=== PATIENT | female | born 2005 | race Caucasian/White ===

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

== ENCOUNTER 2023-02-17 11:16 | Outpatient (REF) | payer OTHER, SELFPAY ==
[2023-02-17 14:06] LABS: Hematocrit 41.5 % (37.0-47.0); Hemoglobin 14.2 g/dl (12.0-16.0); Mean Corpuscular HGB Conc 34.2 g/dl (31.0-35.0); Mean Corpuscular Hemoglobin 30.7 pg (27.0-33.0); Mean Corpuscular Volume 89.8 fL (80.0-98.0); Mean Platelet Volume 8.7 fL (9.4-12.3); Platelet Count 331 X10*3/uL (160-400); Red Blood Count 4.62 X10*6/uL (4.20-5.50); Red Cell Distribution Width 12.2 % (11.0-16.0); White Blood Count 5.2 X10*3/uL (4.8-10.8)
[2023-02-17 14:34] LABS: Alanine Aminotransferase 11 U/L (0-31); Albumin Level 4.4 g/dL (3.5-5.0); Alkaline Phosphatase 84 U/L (39-117); Anion Gap 11 (12-20); Aspartate Amino Transferase 13 U/L (5-31); Bilirubin Total 1.3 mg/dL (0.0-1.0); Blood Urea Nitrogen 10 mg/dL (9-16); Calcium 9.3 mg/dL (8.4-10.2); Carbon Dioxide 26 mmol/L (22-29); Chloride 107 mmol/L (96-108); Cholesterol 160 mg/dL; Estimated Glomerular Filt Rate > 60; Glucose Fasting 91 mg/dL (60-99); HDL Cholesterol 46 mg/dL; LDL Cholesterol Calculated 105 mg/dl; Potassium 4.1 mmol/L (3.3-5.1); Sodium 140 mmol/L (135-145); Triglycerides 46 mg/dL
[2023-02-17 14:49] LABS: TSH reflex Free T4 0.89 uIU/mL (0.32-4.0)
== END 2023-02-17 11:17 | disposition home or self-care (01) ==
LOC: HO.WFDLDS 11:16
PROVIDERS: Visit Provider Hospitalist
DX: Z00.00 Encounter for general adult medical examination without abnormal findings (principal)
CPT/HCPCS: 36415; 80053; 80061; 84443; 85027

== ENCOUNTER 2023-07-29 10:57 | Outpatient (AMB) | payer OTHER, SELFPAY ==
--- NOTE | 2023-07-29 13:17 | AM.OFFWIN_ITS ---
Intake Vital Signs 07/29/23 13:18 Height 5 ft 3 in Weight 139 lb BMI 24.6 BP 100/60 Blood Pressure Location Lt brachial Position Sitting Pulse 61 Pulse Source Pulse Oximeter Temp 98.4 F Temp Source Temporal Artery Scan Pulse Oximetry (%) 99 Oxygen Delivery Method Room Air Intake Visit Reasons: EP, Abdominal Pain Patient Tobacco Use Status: Never used Tobacco Allergies No Known Allergies Allergy (Verified 07/29/23 13:18) Do you need a note to return to daycare/school/sports/work: No HPI HPI Comments History of Present Illness Details This is a 18-year-old female who presents to the office today for sick visit. Patient complaining of abdominal cramping, vaginal bleeding, and nausea/ vomiting times 1-2 weeks. Patient states she ran out of her control and missed several doses. She then restarted her control while she was on her period and she has been having persistent vaginal bleeding, abdominal cramping, nausea/vomiting since then. She also reports food aversions. She has been having normal bowel movements without constipation or diarrhea. She denies any fevers or chills. [facility] Medical History (Updated 03/11/23 @ 08:54 by Vignesh Benedict MD) Left nasal polyps Chronic GERD Migraine Ileitis Social History Housing: House Alcohol intake: never Patient Tobacco Use Status: Never used Tobacco e-Cigarette/Vaping Use: Never Used service: No Current occupational status: employed Current occupation: [employer] Current occupational exposures/hazards: No Cognitive needs: No Hearing needs: No Vision needs: No Review of Systems Const All systems reviewed & are unremarkable except as noted in HPI and below Reports no additional complaints Eyes Reports no additional complaints ENT Reports no additional complaints Card Reports no additional complaints Resp Reports no additional complaints GI Reports no additional complaints Reports no additional complaints Musc Reports no additional complaints Skin/Breast Reports system reviewed and no additional complaints, except as documented Neuro Reports no additional complaints Psych Reports no additional complaints Endo Reports no additional complaints Froilan/Lymph Reports no additional complaints Aller/Immun Reports no additional complaints Physical Exam Vital Signs: Last Vital Signs Temp 98.4 F 07/29/23 13:18 Pulse 61 07/29/23 13:18 BP 100/60 07/29/23 13:18 Pulse Ox 99 07/29/23 13:18 Oxygen Delivery Method Room Air 07/29/23 13:18 BMI result Body Mass Index 24.6 Const Other: Vital signs reviewed. Constitutional: Non-toxic appearing. No acute distress. Well-developed and well-nourished. HEENT: Normocephalic and atraumatic. Tympanic membranes without erythema, edema, or bulging bilaterally. External auditory canals without erythema or edema bilaterally. Moist mucous membranes. No pharyngeal erythema or exudates. Skin: Warm and dry. No rashes or lesions noted. Neck: Full and painless range of motion. No cervical lymphadenopathy. Cardio: Regular rate and rhythm. No murmurs, gallops, or rubs. No lower extremity edema. No JVD. Pulmonary: No respiratory distress. No accessory muscle usage. Clear to auscultation bilaterally without wheezing, crackles, or rhonchi. Gastrointestinal: Soft, nontender, and nondistended in all 4 quadrants. Normoactive bowel sounds in all 4 quadrants. Genitourinary: No CVA tenderness. Musculoskeletal: Normal range of motion in joints throughout the body. No deformity or other signs of injury. Neuro: Alert and oriented x4. Cranial nerves 2-12 grossly intact. No focal deficits appreciated. Psych: Normal mood and affect. Results AMB Urinalysis, Automated UA Leukoctes 125 Chemo/uL Last Edit by Megha Angel CCM on 07/29/23 13: 44 UA Nitrite Negative Last Edit by Megha Angel [facility] on 07/29/23 13:44 UA Urobilinogen 0.2 mg/dL Last Edit by Megha Angel [facility] on 07/29/23 13:44 UA Protein 0 mg/dL Last Edit by Megha Angel [facility] on 07/29/23 13:44 UA pH 6.0 Last Edit by Megha Angel CCM on 07/29/23 13:44 UA Blood 80 Yohan/uL Last Edit by Megha Angel [facility] on 07/29/23 13:44 UA Specific [place] 1.015 Last Edit by Megha Angel CCM on 07/29/23 13:44 UA Ketone Negative Last Edit by Megha Angel [facility] on 07/29/23 13:44 UA Bilirubin 0 mg/dL Last Edit by PANCHO Mancia on 07/29/23 13:44 UA Glucose 0 mg/dL Last Edit by PANCHO Mancia on 07/29/23 13:44 AMB Test Urine AMB Test Urine Negative Last Edit by PANCHO Mancia on 07/29/23 13:45 Assessment & Plan Assessment & Plan (1) UTI (urinary tract infection): Code(s): N39.0 - Urinary tract infection, site not specified (2) Vaginal bleeding: Code(s): N93.9 - Abnormal uterine and vaginal bleeding, unspecified Plan This is a 18-year-old female who presents to the office complaining of abdominal cramping, vaginal bleeding, and nausea/vomiting times 1-2 weeks. Patient's physical exam is benign. Her abdomen is soft, non-tender, and non-distended with normoactive bowel sounds in all 4 quadrants. Her vital signs are stable, her physical exam is benign, and she is overall nontoxic appearing. Differential diagnosis includes versus control side effects versus urinary tract infection; very low suspicion for bowel obstruction. Urine HCG was negative but her urine did have 2+ leukocyte esterase. Treat urinary tract infection with p.o. nitrofurantoin 100 mg twice daily x5 days. Patient sent home on p.o. ondansetron 4 mg every 6 hours as needed for nausea/vomiting. I encouraged patient to follow-up with her primary care physician if her symptoms do not improve within the next 1 week. Patient was advised to follow-up here go to the emergency room if she were to develop worsening vaginal bleeding, lightheadedness/ dizziness, or fever/ chills. Patient verbalized understanding and is agreeable with the plan. Orders: Orders AMB Urinalysis Automated Today Z13.9 - Encounter for screening, unspecified AMB HCG Urine Test Today Z32.02 - Encounter for test, result negative Medications: New nitrofurantoin macrocrystal must administer with a meal/food 100 mg PO BID 10 caps 0RF ondansetron 4 mg PO Q6H PRN 14 tabs 0RF nausea and vomiting Coding Level of Care Code Est Pt Level 3 (04531) Diagnoses UTI (urinary tract infection) N39.0 Vaginal bleeding N93.9
[2023-07-29 13:18] VITALS: BP 100/60; PULSE 61; TEMP 36.9; O2SAT 99; BMI 24.6
== END 2023-07-29 14:08 | disposition home or self-care (01) ==
PROVIDERS: PCP Hospitalist; Visit Provider Physician Assistant Medical
DX: N39.0 Urinary tract infection, site not specified (principal); N93.9 Abnormal uterine and vaginal bleeding, unspecified; Z32.02 Encounter for pregnancy test, result negative
CPT/HCPCS: 81003; 81025; 99213

== ENCOUNTER 2023-12-06 10:22 | Outpatient (AMB) | payer OTHER, SELFPAY ==
--- NOTE | 2023-12-06 10:32 | A.OFFPC_ITS ---
Vital Signs 12/06/23 10:35 Height 5 ft 3 in Weight 130 lb 4 oz BMI 23.1 BP 110/66 Blood Pressure Location Rt brachial Position Sitting Pulse 60 Pulse Source Pulse Oximeter Pulse Oximetry (%) 99 Oxygen Delivery Method Room Air Intake Visit Reasons: CARLA from [facility] Intake Note: Patient is here today for transfer of care from . Requesting for TB test for school. 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 per policy Accompanied by: Self / Same As Patient Allergies No Known Allergies Allergy (Verified 12/06/23 11:08) Medication List - Last Reconciled 12/06/23 by Tisha Ellis, INTERNATIONAL AFFAIRS VICE PRESIDENT-BC fluticasone propionate 50 mcg/actuation (Flonase Allergy Relief) 1 spray intranasal Q12H 30 days norgestimate-ethinyl estradiol 0.18/0.215/0.25 mg-35 mcg (28) 1 tab PO DAILY tretinoin 0.05% appl topical Tobacco use date assessed: 12/06/23 Dental Screening Dental Screen Date: 12/06/23 Did you have a dental visit in the last 12 months?: No Did you have a dental problem in the last 6 months where you did not have access to dental care?: No Was dental information given to patient?: Patient has dentist HPI HPI Comments History of Present Illness Details 18-year-old female with chronic GERD, mi graine, nasal polyp allergic rhinitis Here today for CPE 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 Needs TB spot. Needs refill on OCP Nonsmoker, denies hx of clotting/blood disorders, cancer, [place], family hx of early cardiac On OCP but ran out of refills about 3 months ago. Would like to restart. Denies chance of . LMP 11/26/23 Sexually active has never had a pap smear worried she has BV. Smells worse after sex, sweaty. Denies at home tx. Does not douche. Started a few weeks ago. Not a new sex partner. Denies chance for STD. Dentist - routine dental care Eyes - does not wear glasses. Has appt 01/2024 Specialists: Used to see GI in the past but nothing recently. Surgery - colonoscopy normal a few years ago No other surgery Family hx: Mom and Dad alive and well Siblings: 3 bro,1 sister alive and well Maternal and paternal grandparents alive and well [facility] Medical History Left nasal polyps Chronic GERD Migraine Ileitis Surgical History History of colonoscopy Social History Housing: House Alcohol intake: never Patient Tobacco Use Status: Never used Tobacco e-Cigarette/Vaping Use: Never Used Second Hand Smoke Exposure: No service: No Current occupational status: employed Current occupation: [employer] Current occupational exposures/hazards: No Cognitive needs: No Hearing needs: No Vision needs: No Questionnaire PHQ-9 Over the last 2 weeks, how often have you been bothered by any of the following problems? 1. Little interest or pleasure in doing things: not at all 2. Feeling down, depressed, or hopeless: not at all 3. Trouble falling or staying asleep, or sleeping too much: not at all 4. Feeling tired or having little energy: not at all 5. Poor appetite or overeating: not at all 6. Feeling bad about yourself - or that you are a failure or have let yourself or your family down: not at all 7. Trouble concentrating on things, such as reading the newspaper or watching television: not at all 8. Moving or speaking so slowly that other people could have noticed. Or the opposite - being so fidgety or restless that you have been moving around a lot more than usual: not at all 9. Thoughts that you would be better off or of hurting yourself in some way: not at all Total score: 0 Depression Screening Interpretation: Negative Depression Screening Done: Yes Source: Developed by Drs. Bubba Carey, Betty Cardenas, Az Butler and colleagues, with an educational gonzález from [employer]. Thrive Questionnaire Date Thrive assessed: 12/06/23 I am a: Patient What is your living situation today?: I have a steady place to live Within the past 12 months, did the food you bought not last and you didn't have the money to get more?: Never true Within the past 12 months, did you worry whether your food would run out before you got money to buy more?: Never true Do you have trouble paying for medicines?: No Do you have trouble getting transportation to medical appointments?: No Do you have trouble paying your heating and electricity bill?: No Do you have trouble taking care of your child, family member or friend?: No Do you have trouble with day-to-day activities such as bathing, preparing meals, shopping, managing finances, etc.?: No Are you currently unemployed and looking for a job?: No Are you interested in more education?: No Currently or been in a relationship where the following occur: no concerns reported THRIVE Score: 0 AUDIT C Alcohol Use Questionnaire (AUDIT-C) 1. How often do you have a drink containing alcohol?: Never Total Score: 0 FRED-7 AMB Questionnaire FRED-7 Date FRED - 7 assessed: 12/06/23 Feeling nervous, anxious, or on edge: 0 = Not at all Not being able to stop or control worryin = Not at all Worrying too much about different things: 0 = Not at all Trouble relaxin = Not at all Being so restless that it is hard to sit still: 0 = Not at all Becoming easily annoyed or irritable: 0 = Not at all Feeling afraid as if something awful might happen: 0 = Not at all Total FRED-7 score (0-4 normal; 5-9 mild; 10-14 moderate; 15-21 severe): 0 Source: Developed by Drs. Bubba Carey, Betty Cardenas, Az Butler and colleagues, with an educational gonzález from [employer]. Review of Systems Const Details: Constitutional: [Denies} fever. Skin: Denies rash. Eye: Denies eye pain. ENMT: Denies sore throat and nasal congestion. Respiratory: Denies shortness of breath and cough. Gastrointestinal: Denies nausea, vomiting or abdominal pain. Cardiovascular: Denies chest pain and syncope. Genitourinary: Denies dysuria. Musculoskeletal: Denies back pain and extremity pain. Neurologic: Denies headaches, confusion, and weakness. Psychiatric: Denies suicidal thoughts and substance abuse. Allergy/ Immunologic: Denies impaired immunity. Physical exam (Primary Care) Vital Signs: Last Vital Signs Pulse 60 12/06/23 10:35 BP 110/66 12/06/23 10:35 Pulse Ox 99 12/06/23 10:35 Oxygen Delivery Method Room Air 12/06/23 10:35 BMI result Body Mass Index 23.1 Tobacco/Smoking Status: Tobacco use Status Tobacco use date assessed 12/06/23 12/06/23 10:42 Patient Tobacco Use Status Never used Tobacco 12/06/23 10:42 e-Cigarette/Vaping Use Never Used 12/06/23 10:42 PHQ-9: PHQ-9 Score PHQ-9: Total score 0 12/06/23 11:07 Depression Screening Interpretation: Negative Thrive Assessment: Date of Thrive Assessment Date Thrive assessed 12/06/23 12/06/23 10:42 Currently or been in a relationship where the following occur: no concerns reported Const Other: General: Well developed, well nourished, in no acute distress. Appears stated age. Head: Normocephalic, atraumatic. Eyes: Pupils are equal, round and reactive to light and accommodation. Conj unctivae are clear. Vision grossly normal. Ears: TMs clear AU, EACS WNL Nose: Patent, without discharge. Mouth: There are no ulcers or lesions noted. No inflammation, no post nasal drip, no plaques nor exudates. Neck: Supple, no adenopathy or thyromegaly. Lungs: Clear to auscultation bilaterally. No rales, rhonchi or wheeze noted. Good air flow in all metcalf. Heart: Regular rate and rhythm. No murmurs, click, rubs or gallops are noted. Abdomen: Bowel sounds present in all quadrants. The abdomen is soft, nontender, with no masses or organomegaly noted. No hernias are noted. Musculoskeletal: Joints are nontender, without swelling, redness, or effusions. Range of motion is observed to be normal. Pulses: Peripheral pulses are equal and palpable bilaterally. Extremities: No clubbing, cyanosis nor edema is noted. Neurologic: Gait and station normal. Cranial Nerves 2-12 intact. Motor strength grossly symmetrical and intact. No sensory loss. Balance normal. Skin: No rashes, ulcers, or lesions noted. Turgor is good. Skin color is good. Hair and nails are without abnormalities. Psych: Normal eye contact, affect and mood appropriate, and normal interactions. Patient is alert and appropriate to context. Extremities: No clubbing, cyanosis or edema. Assessment and Plan Assessment & Plan (1) Normal physical exam: Code(s): Z00.00 - Encounter for general adult medical examination without abnormal findings (2) Screening for tuberculosis: Code(s): Z11.1 - Encounter for screening for respiratory tuberculosis (3) Vaginal odor: Code(s): N89.8 - Other specified noninflammatory disorders of vagina Orders: Orders T Spot TB 12/06/23 Z11.1 - Encounter for screening for respiratory tuberculosis SureSwab BV CT/NG TMA 12/06/23 N89.8 - Other specified noninflammatory disorders of vagina Medications: Changed From norgestimate-ethinyl estradiol 0.18/0.215/0.25 mg-35 mcg (28) 1 tab PO DAILY 84 tabs 0RF N92.6 - Irregular menstruation, unspecified To norgestimate-ethinyl estradiol 0.18/0.215/0.25 mg-35 mcg (28) 1 tab PO DAILY 90 days 84 tabs 3RF N92.6 - Irregular menstruation, unspecified Coding Level of Care Code Est Pt Prev Care 18-39y(93133) Diagnoses Normal physical exam Z00.00 Screening for tuberculosis Z11.1 Vaginal odor N89.8
[2023-12-06 10:35] VITALS: BP 110/66; PULSE 60; O2SAT 99; BMI 23.1
== END 2023-12-06 11:31 | disposition home or self-care (01) ==
PROVIDERS: PCP Hospitalist; Visit Provider Nurse Practitioner Family
DX: Z00.00 Encounter for general adult medical examination without abnormal findings (principal); Z11.1 Encounter for screening for respiratory tuberculosis; N89.8 Other specified noninflammatory disorders of vagina
CPT/HCPCS: 99395

== ENCOUNTER 2023-12-06 11:25 | Outpatient (REF) | payer OTHER, SELFPAY ==
[2023-12-09 09:13] LABS: TS Negative Control Passed; TS Panel A 0; TS Panel B 0; TS Positive Control Passed; TSpotTB Negative (Negative)
== END 2023-12-06 11:26 | disposition home or self-care (01) ==
LOC: HO.WFDLDS 11:25
PROVIDERS: Visit Provider Nurse Practitioner Family
DX: Z11.1 Encounter for screening for respiratory tuberculosis (principal); N89.8 Other specified noninflammatory disorders of vagina
CPT/HCPCS: 36415; 86481; 87480; 87510; 87660

== ENCOUNTER 2024-05-22 15:12 | Outpatient (AMB) | payer OTHER, SELFPAY ==
--- NOTE | 2024-05-22 15:57 | MHC.OFFWIV ---
Intake Vital Signs 05/22/24 16:07 Height 5 ft 3 in BP 112/66 Blood Pressure Location Lt brachial Position Sitting Pulse 70 Pulse Source Pulse Oximeter Temp 97.8 F Temp Source Oral Pulse Oximetry (%) 98 Oxygen Delivery Method Room Air Intake Visit Reasons: EP ?UTI Intake Note: pt is here for c/o possible uti Patient Tobacco Use Status: Never used Tobacco Allergies No Known Allergies Allergy (Verified 05/22/24 16:07) Do you need a note to return to daycare/school/sports/work: No HPI HPI Comments History of Present Illness Details This is a 18-year-old female with no stated past medical history presenting for evaluation of urinary urgency and frequency for the past 3-4 days. Patient denies having any fevers, chills or vaginal discharge but describes suprapubic discomfort. Patient's last normal menstrual period was May 14, 2024. She denies having any new sexual partners. [facility] Medical History Left nasal polyps Chronic GERD Migraine Ileitis Surgical History History of colonoscopy Social History Housing: House Alcohol intake: never Patient Tobacco Use Status: Never used Tobacco e-Cigarette/Vaping Use: Never Used Second Hand Smoke Exposure: No service: No Current occupational status: employed Current occupation: [employer] Current occupational exposures/hazards: No Cognitive needs: No Hearing needs: No Vision needs: No Review of Systems Const All systems reviewed & are unremarkable except as noted in HPI and below Reports no additional complaints Eyes Reports no additional complaints ENT Reports no additional complaints Card Reports no additional complaints Resp Reports no additional complaints GI Reports no additional complaints Reports no additional complaints, Denies urinary incontinence, Reports urinary urgency and Denies vaginal discharge Musc Reports no additional complaints Skin/Breast Reports system reviewed and no additional complaints, except as documented Neuro Reports no additional complaints Psych Reports no additional complaints Endo Reports no additional complaints Physical Exam Vital Signs: Last Vital Signs Temp 97.8 F 05/22/24 16:07 Pulse 70 05/22/24 16:07 BP 112/66 05/22/24 16:07 Pulse Ox 98 05/22/24 16:07 Oxygen Delivery Method Room Air 05/22/24 16:07 Const General: cooperative, healthy appearing, comfortable, no acute distress, well developed, alert, awake and Physically active Nutritional Appearance: average body habitus Orientation/consciousness: patient oriented x3 Limitations: no limitations GI Inspection: Yes normal to inspection Palpation (GI): Soft to palpation, Tenderness to palpation present (GI) (mild suprapubic tenderness) and no guarding Auscultation: normal bowel sounds General: Yes Bimanual renal exam normal bilaterally, No bladder normal to palpation (Suprapubic tenderness) and Yes no CVA tenderness Bimanual exam- vagina & uterus: No bladder normal to palpation (Suprapubic tenderness) Back/Spine/Pelvis Back: no CVA tenderness Skin General skin exam: no rashes or lesions noted Neuro General: patient oriented x3 Psych Appearance: grossly normal Mental Status: mental status grossly normal Insight: Good insight present (Psych) Judgement: Good judgement present (Psych) Results AMB Urinalysis, Automated UA Leukoctes 70 Chemo/uL Last Edit by Shane Grace CMA on 05/22/24 16:22 UA Nitrite Negative Last Edit by Shane Grace CMA on 05/22/24 16:22 UA Urobilinogen 0.2 mg/dL Last Edit by Shane Grace CMA on 05/22/24 16:22 UA Protein 0 mg/dL Last Edit by Shane Grace CMA on 05/22/24 16:22 UA pH 6.0 Last Edit by Shane Grace CMA on 05/22/24 16:22 UA Blood 25 Yohan/uL Last Edit by Shane Grace CMA on 05/22/24 16:22 UA Specific [place] 1.000 Last Edit by Shane Grace CMA on 05/22/24 16:22 UA Ketone Negative Last Edit by Shane Grace CMA on 05/22/24 16:22 UA Bilirubin 0 mg/dL Last Edit by Shane Grace CMA on 05/22/24 16:22 UA Glucose 0 mg/dL Last Edit by Shane Grace CMA on 05/22/24 16:22 Results Reviewed Results Reviewed: Laboratory Last Values Urine pH (Auto) 6.0 05/22/24 16:22 Specific [place] (Auto) 1.000 05/22/24 16:22 Urine Protein (Auto) 0 mg/dL 05/22/24 16:22 Glucose (UA)(Auto) 0 mg/dL 05/22/24 16:22 Urine Ketones (Auto) Negative 05/22/24 16:22 Urine Blood (Auto) 25 Yohan/uL 05/22/24 16:22 Urine Nitrite (Auto) Negative 05/22/24 16:22 Urine Bilirubin (Auto) 0 mg/dL 05/22/24 16:22 Urine Urobilinogen (Auto) 0.2 mg/dL 05/22/24 16:22 Leukocyte Esterase (Auto) 70 Chemo/uL 05/22/24 16:22 Urinalysis reviewed with patient. Assessment & Plan Assessment & Plan (1) Increased urinary frequency: Comment: Patients history coupled with her examination and urinalysis warrants antibiotic therapy. Patient will be discharged with Macrobid. Code(s): R35.0 - Frequency of micturition Plan: Macrobid 100 mg b.i.d. x7 days. Increase clear fluids daily, Pyridium OTC only as needed. Orders: Orders AMB Urinalysis Automated Today Z13.9 - Encounter for screening, unspecified Medications: New nitrofurantoin macrocrystal must administer with a meal/food 100 mg PO BID 14 caps 0RF Coding Level of Care Code Est Pt Level 3 (05713) Diagnoses Increased urinary frequency R35.0 Time Spent (min) 20
[2024-05-22 16:07] VITALS: BP 112/66; PULSE 70; TEMP 36.6; O2SAT 98
== END 2024-05-22 16:52 | disposition home or self-care (01) ==
PROVIDERS: PCP Hospitalist; Visit Provider Physician Assistant
DX: R35.0 Frequency of micturition (principal)
CPT/HCPCS: 81003; 99213

== ENCOUNTER 2024-05-25 21:21 | Emergency (ER) | payer OTHER, SELFPAY ==
--- NOTE | ~2024-05-25 | US_ITS ---
EXAMINATION: US RETROPERITONEAL LIMITED (RENAL ONLY) CLINICAL INFORMATION: Right flank pain.. COMPARISON: None available. TECHNIQUE: Complete retroperitoneal ultrasound performed. FINDINGS: RIGHT KIDNEY: 10.7 x 3.9 x 4.2 cm (SAG x AP x TRV). The kidney is normal in size, contour, and echogenicity. Renal cortical thickness is normal. There is a 5 mm calcification along the cortical surface midpole right kidney. No hydronephrosis. LEFT KIDNEY: 9.2 x 5.2 x 4.5 cm (SAG x AP x TRV). The kidney is normal in size, contour, and echogenicity. Renal cortical thickness is normal. No calculi or focal parenchymal lesions. No hydronephrosis. There is partial filling of the urinary bladder. The urinary bladder is normal in appearance. The bilateral ureteral jets are not seen at the time of imaging. The prevoid urinary volume volume is 55.9 mL. No postvoid obtained. US/US retroperitoneal limited IMPRESSION: 1. 5 mm calcification along the cortical surface midpole of the right kidney. No hydronephrosis. 2. No left-sided renal calculi or left-sided hydronephrosis.
[2024-05-25 21:35] VITALS: BP 113/68; PULSE 77; RESP 16; TEMP 37; O2SAT 99; BMI 22.5
[2024-05-25 21:56] LABS: MANUAL DIFF FLAG NO
[2024-05-25 21:58] LABS: Basophils Percent Auto 0.5 % (0-2); Eosinophils Absolute Auto 0.2 X10*3/uL (0.0-0.4); Eosinophils Percent Auto 2.2 % (0-4); Hematocrit 37.3 % (37.0-47.0); Hemoglobin 13.5 g/dl (12.0-16.0); Imm Gran Abs Auto 0.03 X10*3/uL (0.00-0.03); Imm Gran Pct Auto 0.4 % (0.0-0.4); Lymphocytes Absolute Auto 1.8 X10*3/uL (1.2-4.9); Lymphocytes Percent Auto 23.9 % (20-40); Mean Corpuscular HGB Conc 36.2 g/dl (31.0-35.0); Mean Corpuscular Hemoglobin 32.1 pg (27.0-33.0); Mean Corpuscular Volume 88.8 fL (80.0-98.0); Mean Platelet Volume 8.5 fL (9.4-12.3); Monocytes Absolute Auto 0.5 X10*3/uL (0.1-1.2); Platelet Count 245 X10*3/uL (160-400); White Blood Count 7.6 X10*3/uL (4.8-10.8)
[2024-05-25 21:59] LABS: Appearance Urine Clear; Color Urine Yellow; Glucose Urine UA Negative (Negative); Leukocyte Esterase Urine Trace (Negative); Nitrite Urine Negative (Negative); UMIC TRIGGER UACC YES; Urine Blood Negative (Negative); Urine Ketones Negative (Negative); Urine Protein Negative (Neg-Trace)
[2024-05-25 22:05] LABS: Bacteria Urine None Seen (None Seen); Hyaline Casts Urine 0-2 /LPF (0-2); RBC Urine 0-2 /HPF (0-2); Squamous Epithelial Cell Urine 0-2 /HPF (0-2); WBC Urine 0-5 /HPF (0-5)
[2024-05-25 22:13] LABS: Alanine Aminotransferase 8 U/L (0-31); Albumin Level 4.5 g/dL (3.5-5.0); Alkaline Phosphatase 77 U/L (39-117); Anion Gap 13 (12-20); Aspartate Amino Transferase 15 U/L (5-31); Bilirubin Total 1.1 mg/dL (0.0-1.0); Blood Urea Nitrogen 15 mg/dL (9-16); Calcium 9.3 mg/dL (8.4-10.2); Carbon Dioxide 25 mmol/L (22-29); Chloride 106 mmol/L (96-108); Creatinine Clr Calc Pharmacy 82.5; Estimated Glomerular Filt Rate > 60; Glucose Random 87 mg/dL (60-115); Sodium 140 mmol/L (135-145); Total Protein 7.5 g/dL (6.5-8.0)
--- NOTE | 2024-05-25 22:24 | ED.ABDPAIN ---
HPI - Abdominal Pain General Chief Complaint: Abdominal Pain Stated Complaint: Pain in R side of back Time Seen by Provider: 05/25/24 21:59 Source: patient Mode of arrival: ambulatory Limitations: no limitations History of Present Illness ED Provider: KRYSTEN HPI narrative: 18 yo female with no hx of UTI just completed macrobid course now here with 2 days of atraumatic R flank pain radiating to the groin no n/v/d no fevers. No prior hx of stones. MD elicited complaint: flank pain Pertinent past history: past UTI Onset (ago): day(s) (2) Pain Consistency: constant Location: R flank Severity: moderate Quality: aching Radiation: RLQ Migration to: no migration Exacerbating factors: nothing Relieving factors: nothing Associated symptoms: denies other symptoms Related Data Previous Rx's ?Medication ?Instructions ?Recorded nitrofurantoin macrocrystal 100 mg 100 mg PO BID #14 caps 05/22/24 capsule cyclobenzaprine 10 mg tablet 10 mg PO TID PRN muscle spasm #20 05/26/24 tabs ibuprofen 600 mg tablet 600 mg PO Q6H PRN pain #30 tabs 05/26/24 ondansetron 4 mg disintegrating 4 mg PO Q8H PRN nausea and 05/26/24 tablet vomiting #20 tabs Allergies Allergy/AdvReac Type Severity Reaction Status Date / Time No Known Allergies Allergy Verified 05/25/24 21:36 Review of Systems Review of Systems Constitutional : No Fever, No Chills ENT/Mouth : No sore throat Eyes: No Eye Pain, No Swelling, No Redness Cardiovascular : No Chest Pain, No SOB Respiratory : No Cough, No Sputum, No Wheezing Gastrointestinal : no Nausea, no Vomiting, No Diarrhea, positive abdominal pain Genitourinary : no Dysuria, no urinary frequency, no Hematuria, positive Flank Pain Musculoskeletal : No joint pain, No Myalgias Skin : No Skin Lesions, No rash Neuro : No Weakness, No Numbness, No Headache Psych : No Anxiety/Panic, No Depression Heme/Lymph: No Bruising, No Lymphadenopathy Endocrine : No Polyuria, No Polydipsia All other systems reviewed and are negative PMFSH Past Medical History Attestation statement: The following information was validated with the patient. Source: old records reviewed Medical History Left nasal polyps Chronic GERD Migraine Ileitis Surgical History History of colonoscopy Social History Social History Housing: House Alcohol intake: never Patient Tobacco Use Status: Never used Tobacco e-Cigarette/Vaping Use: Never Used Second Hand Smoke Exposure: No Advance Directives: No Advance Directives Information Provided: No service: No Current occupational status: employed Current occupation: [employer] Current occupational exposures/hazards: No Cognitive needs: No Hearing needs: No Vision needs: No Physical Exam ED Vital Signs: Vital Signs - 24 hr 05/25/24 21:35 05/25/24 23:25 Temperature 98.6 F 98.2 F Pulse Rate 77 53 Respiratory Rate 16 18 Blood Pressure 113/68 103/62 Pulse Oximetry 99 100 Oxygen Delivery Method Room Air Room Air BMI result Body Mass Index 22.5 Appearance: Alert. Oriented X3. No acute distress. Eyes: Pupils equal, round and reactive to light. ENT: Pharynx normal. Neck: Normal inspection. Neck supple. CVS: Normal heart rate and rhythm. Pulses normal. Respiratory: No respiratory distress. Breath sounds normal. Abdomen: Soft and nontender. Back: R lower flank ttp Skin: Skin warm and dry. Normal skin color. Normal skin turgor. Extremities: No lower extremity edema. No calf ttp Neuro: Oriented X 3. No motor deficit. No sensory deficit. Medical Decision Making Medical Decision Making [facility] Narrative: 18 yo female with recent treatment of UTI on macrobid now here with R flank pain no n/v/d no fevers at this time will obtain labs, UA and renal US has no abdominal ttp doubt appendicitis. She is tolerating PO not toxic. Differential Diagnosis Differential Diagnoses: The differential diagnosis associated with the presentation includes MSK pain, renal colic Admission/Observation Consideration of admission/observation: Escalation of care including admission/observation considered no UTI, labs normal, no obstruction on US stable for DC Lab Data [facility] Lab Attestation statement: I reviewed the patient's lab results. 05/25/24 21:50 05/25/24 21:50 Labs: Lab Results 05/25/24 Range/Units 21:50 WBC 7.6 (4.8-10.8) X10*3/uL RBC 4.20 (4.20-5.50) X10*6/uL Hgb 13.5 (12.0-16.0) g/dl Hct 37.3 (37.0-47.0) % MCV 88.8 (80.0-98.0) fL MCH 32.1 (27.0-33.0) pg MCHC 36.2 H (31.0-35.0) g/dl RDW 12.0 (11.0-16.0) % Plt Count 245 D (160-400) X10*3/uL MPV 8.5 L (9.4-12.3) fL Immature Gran % (Auto) 0.4 (0.0-0.4) % Neut % (Auto) 66.0 (45-73) % Lymph % (Auto) 23.9 (20-40) % [place] % (Auto) 7.0 (2-11) % Eos % (Auto) 2.2 (0-4) % Baso % (Auto) 0.5 (0-2) % Lymph # (Auto) 1.8 (1.2-4.9) X10*3/uL [place] # (Auto) 0.5 (0.1-1.2) X10*3/uL Eos # (Auto) 0.2 (0.0-0.4) X10*3/uL Baso # (Auto) 0.0 (0.0-0.2) X10*3/uL Abs Immat Gran (auto) 0.03 (0.00-0.03) X10*3/uL Absolute Neuts (auto) 5.0 (2.0-8.3) x10*3/uL Absolute Nucleated RBC 0.000 (0.0-0.012) X10*3/uL Nucleated RBC % (auto) 0.0 (0.0-0.2) /100WBC Sodium 140 (135-145) mmol/L Potassium 4.0 (3.3-5.1) mmol/L Chloride 106 (96-108) mmol/L Carbon Dioxide 25 (22-29) mmol/L Anion Gap 13 (12-20) BUN 15 (9-16) mg/dL Creatinine 0.90 (0.5-1.4) mg/dL Estim Creat Clear Calc 82.5 Estimated GFR > 60 Random Glucose 87 (60-115) mg/dL Calcium 9.3 (8.4-10.2) mg/dL Total Bilirubin 1.1 H (0.0-1.0) mg/dL AST 15 (5-31) U/L ALT 8 (0-31) U/L Alkaline Phosphatase 77 (39-117) U/L Total Protein 7.5 (6.5-8.0) g/dL Albumin 4.5 (3.5-5.0) g/dL Urine Color Yellow Urine Appearance Clear Urine pH 6.0 (5.0-9.0) Ur Specific [place] 1.020 (1.005-1.025) Urine Protein Negative (Neg-Trace) mg/dL Urine Glucose (UA) Negative (Negative) mg/dL Urine Ketones Negative (Negative) mg/dL Urine Blood Negative (Negative) Urine Nitrite Negative (Negative) Ur Leukocyte Esterase Trace H (Negative) Urine RBC 0-2 (0-2) /HPF Urine WBC 0-5 (0-5) /HPF Ur Squamous Epith Cells 0-2 (0-2) /HPF Urine Bacteria None Seen (None Seen) Hyaline Casts 0-2 (0-2) /LPF Independent Interpretation I performed an independent interpretation of an: Ultrasound (no hydronephrosis no obstruction) Radiology Impression Discussion of test interpretation with radiology: I have reviewed the radiologist's reading. Independent Historian Clinical information obtained from an independent historian. History obtained from or confirmed by: Spouse External Record Review External record reviewed: Outpatient record Prescription Management I considered prescription management with: Pain Medication Discharge Plan Discharge Clinical Impression: Right flank pain Patient Disposition: Home, Self-Care Instructions: Flank Pain (ED) Additional Instructions: normal labs, urine US shows no obstruction or blockage of kidney there is a small stone in the right kidney but this does not cause pain at this time stay hydrated, drink plenty of fluids return for fevers vomiting or any other symptoms such as worsening issues with urination or pain Prescriptions: New cyclobenzaprine 10 mg tablet 10 mg PO TID PRN (Reason: muscle spasm) Qty: 20 0RF ibuprofen 600 mg tablet 600 mg PO Q6H PRN (Reason: pain) Qty: 30 0RF ondansetron 4 mg tablet,disintegrating 4 mg PO Q8H PRN (Reason: nausea and vomiting) Qty: 20 0RF No Action nitrofurantoin macrocrystal 100 mg capsule 100 mg PO BID Qty: 14 0RF Rx Instructions: must administer with a meal/food Print Language: Indian
[2024-05-25 23:25] VITALS: BP 103/62; PULSE 53; RESP 18; TEMP 36.8; O2SAT 100
[2024-05-26] MEDS: Ibuprofen 600 MG TABLET PO (01:19)
[2024-05-26 01:24] VITALS: BP 107/64; PULSE 61; RESP 16; TEMP 36.9; O2SAT 97
== END 2024-05-26 01:26 | disposition home or self-care (01) ==
PROVIDERS: Emergency Provider Emergency Medicine
DX: R10.9 Unspecified abdominal pain (principal)
CPT/HCPCS: 36415; 76775; 80053; 81001; 81003; 85025; 99284

== ENCOUNTER 2024-06-03 13:16 | Emergency (ER) | payer OTHER, SELFPAY ==
--- NOTE | ~2024-06-03 | CT_ITS ---
EXAMINATION: CT ABDOMEN AND PELVIS WITHOUT CONTRAST CLINICAL INFORMATION: History of stones, pain and nausea and vomiting COMPARISON: Renal ultrasound 05/25/2024 TECHNIQUE: Multidetector volumetric imaging was performed from the superior aspect of the liver through the pubic symphysis. Sagittal and coronal reformatted images were obtained on the technologist's workstation. This CT examination was performed using dose optimization techniques as appropriate, variously including the following: *Automated exposure control *Adjustment of mA and/or kV according to patient size (this includes techniques or standardized protocols for targeted exams where dose is matched to indication/reason for exam; i.e. extremities or head) *Use of iterative reconstruction technique DLP: 373 mGy-cm FINDINGS: LUNG BASES: Unremarkable. ABDOMINAL AND PELVIC WALL: Unremarkable. LIVER AND BILIARY TREE: Unremarkable. GALLBLADDER: Unremarkable. PANCREAS: Unremarkable. SPLEEN: Unremarkable. ADRENAL GLANDS: Unremarkable. KIDNEYS AND URETERS: No hydronephrosis or nephrolithiasis. GASTROINTESTINAL TRACT: Large and small bowel are unremarkable. The appendix is not identified however there are no findings to suggest appendicitis. VASCULAR: Unremarkable. LYMPH NODES/PERITONEUM: No lymphadenopathy. FREE FLUID: None. BLADDER: Unremarkable. PELVIC VISCERA: Calcified phlebolith in the pelvis. OSSEOUS STRUCTURES: Unremarkable. CT/CT abdomen pelvis wo IV con IMPRESSION: No hydronephrosis or nephrolithiasis.
[2024-06-03 13:32] VITALS: BP 90/60; BP 99/55; PULSE 52; PULSE 54; RESP 15; TEMP 35.3; O2SAT 100; BMI 22.5
--- NOTE | 2024-06-03 13:44 | ED.GENADULT ---
HPI - General Adult General Chief complaint: General Medical Stated complaint: N/V Time Seen by Provider: 06/03/24 13:40 Source: patient and EMS Mode of arrival: EMS Limitations: no limitations History of Present Illness HPI narrative: Patient is a 19-year-old female who presents to the emergency department for evaluation via EMS. She states that today she walked from her apartment to the bank which is just across the parking lot. When she got into the bank she began to feel very nauseous and like she might pass out. She sat down and her symptoms improved. After leaving the Bank she then walked across the parking lot to the gas station to get something to drink. While standing in line she again began to feel nauseous and like she might vomit, she decided to step outside, she vomited a small amount, reporting contents to be her breakfast including goldfish and pop tarts. Her symptoms were still present, there is a walk-in urgent care in the same [place] that she was in, she attempted to go there but they were closed, therefore she called EMS for transportation to the emergency department. She states that she is having pain diffusely across her lower abdomen reports 10. She states that she was recently seen for kidney stones, does not believe she has passed them just yet. She denies flank pain or lower back pain. She reports her last menstrual period was May 14-2023. However today she noticed that she was having vaginal bleeding again. Typically she has a very light menstrual cycle and her most recent 1 was normal, however today experiencing a heavier flow than she would normally anticipate. She denies attempting to become , not currently using any form of contraception. She denies any chest pain, dizziness, vision changes, headache, recent URI symptoms. Related Data Previous Rx's ?Medication ?Instructions ?Recorded nitrofurantoin macrocrystal 100 mg 100 mg PO BID #14 caps 05/22/24 capsule cyclobenzaprine 10 mg tablet 10 mg PO TID PRN muscle spasm #20 05/26/24 tabs ibuprofen 600 mg tablet 600 mg PO Q6H PRN pain #30 tabs 05/26/24 ondansetron 4 mg disintegrating 4 mg PO Q8H PRN nausea and 05/26/24 tablet vomiting #20 tabs Allergies Allergy/AdvReac Type Severity Reaction Status Date / Time No Known Allergies Allergy Verified 06/03/24 13:36 Review of Systems Review of Systems: Yes all other systems are reviewed and are negative [facility] Past Medical History Attestation statement: The following information was validated with the patient. Source: old records reviewed Medical History Left nasal polyps Chronic GERD Migraine Ileitis Surgical History History of colonoscopy Social History Social History Housing: House Alcohol intake: never Patient Tobacco Use Status: Never used Tobacco e-Cigarette/Vaping Use: Never Used Second Hand Smoke Exposure: No Advance Directives: No Advance Directives Information Provided: No service: No Current occupational status: employed Current occupation: [employer] Current occupational exposures/hazards: No Cognitive needs: No Hearing needs: No Vision needs: No Physical Exam ED Vital Signs: Vital Signs - 24 hr 06/03/24 13:32 06/03/24 14:27 06/03/24 14:28 Temperature 95.6 F L Pulse Rate 54 57 56 Respiratory Rate 15 Blood Pressure 99/55 L 91/43 L 89/49 L Pulse Oximetry 100 Oxygen Delivery Method Room Air 06/03/24 14:28 06/03/24 14:29 06/03/24 16:05 Temperature 97.9 F Pulse Rate 76 57 59 Respiratory Rate 14 16 Blood Pressure 80/48 L 89/49 L 93/54 L Pulse Oximetry 99 100 Oxygen Delivery Method Room Air Room Air BMI result Body Mass Index 22.5 Appearance: Alert.?Oriented to person, place and time. No acute distress.?Normal affect. Eyes: Pupils equal, round and reactive to light.? ENT: Pharynx normal.?? Neck: Normal inspection.? Neck supple.?? CVS: Heart sounds normal. Normal heart rate and rhythm.? Pulses normal.?? Respiratory: No respiratory distress.? Lung sounds clear to auscultation bilaterally?? Abdomen: Soft with mild tenderness upon palpation diffusely across the lower abdomen. No rebound tenderness. No rigidity. No guarding. No CVAT Normoactive bowel sounds. Skin: Skin warm and dry.? Normal skin color.? Extremities: No lower extremity edema.? No calf ttp? Neuro: Moves all extremities spontaneously. Sensation intact bilaterally. CN II-XII intact. No focal neuro deficits. Ambulates with normal steady gait. Course Reevaluation(s) Reevaluation #1: Patient's symptoms are much improved, she ambulated to the bathroom without difficulty. Reports no further vomiting, nausea seems improved after medicine. Pain in her abdominal pain persists but is better. CT of the abdomen and pelvis is pending. She was hypotensive and bradycardic, on review does seem lower than what her baseline is. Concern for possible obstructive calculi. Patient does not want to wait for CT results, is requesting to leave at this time. Advised she is leaving against medical advice, she verbalizes understanding of this. Had an at length discussion, advised to return constantly with any new or worsening symptoms or concerns Time: 16:21 Medications Administered Discontinued Medications Generic Name Dose Route Start Last Admin Trade Name Freq PRN Reason Stop Dose Admin Sodium Chloride 1,000 mls @ 999 mls/hr 06/03/24 14:00 06/03/24 15:47 Ns IV 06/03/24 15:00 Infused .Q1H1M RAHEL Infusion Ondansetron HCl 4 mg 06/03/24 13:50 06/03/24 14:29 Ondansetron Hcl 4 Mg/2 Ml Vial IVPUSH 06/03/24 13:51 4 mg ONCE ONE Administration Medical Decision Making Medical Decision Making [facility] Narrative: Patient is a 19-year-old female with past medical history of recent urinary tract infection, nephrolithiasis but no obstructive calculi who presents emergency department for evaluation of nausea vomiting, near-syncope and diffuse bilateral lower abdominal pain. Will obtain CBC to evaluate for leukocytosis/ anemia, CMP and lipase to evaluate for abnormal electrolytes /abnormal renal function/ abnormal hepatic/biliary function, EKG, hCG, and Urinalysis in addition to orthostatic vital signs. Reviewed ultrasound from 05/25/2024 reveals a 5 mm stone in the right midpole, discussed with patient potential that the stone may have traveled into her ureter. Differential Diagnosis Differential Diagnoses: The differential diagnosis associated with the presentation includes (Dehydration, , ectopic , ureteral calculi, vasovagal syncope, vertigo, orthostatic hypotension, ureteral calculi with hydronephrosis) Admission/Observation Consideration of admission/observation: Escalation of care including admission/observation considered Lab Data MDM Lab Attestation statement: I reviewed the patient's lab results. 06/03/24 14:18 06/03/24 14:18 Labs: Lab Results 06/03/24 Range/Units 14:18 WBC 9.7 (4.8-10.8) X10*3/uL RBC 4.44 (4.20-5.50) X10*6/uL Hgb 14.2 (12.0-16.0) g/dl Hct 40.3 (37.0-47.0) % MCV 90.8 (80.0-98.0) fL MCH 32.0 (27.0-33.0) pg MCHC 35.2 H (31.0-35.0) g/dl RDW 12.1 (11.0-16.0) % Plt Count 251 (160-400) X10*3/uL MPV 8.4 L (9.4-12.3) fL Immature Gran % (Auto) 0.5 H (0.0-0.4) % Neut % (Auto) 82.3 H (45-73) % Lymph % (Auto) 9.5 L (20-40) % [place] % (Auto) 6.3 (2-11) % Eos % (Auto) 1.0 (0-4) % Baso % (Auto) 0.4 (0-2) % Lymph # (Auto) 0.9 L (1.2-4.9) X10*3/uL [place] # (Auto) 0.6 (0.1-1.2) X10*3/uL Eos # (Auto) 0.1 (0.0-0.4) X10*3/uL Baso # (Auto) 0.0 (0.0-0.2) X10*3/uL Abs Immat Gran (auto) 0.05 H (0.00-0.03) X10*3/uL Absolute Neuts (auto) 8.0 (2.0-8.3) x10*3/uL Absolute Nucleated RBC 0.000 (0.0-0.012) X10*3/uL Nucleated RBC % (auto) 0.0 (0.0-0.2) /100WBC Sodium 140 (135-145) mmol/L Potassium 3.8 (3.3-5.1) mmol/L Chloride 108 (96-108) mmol/L Carbon Dioxide 24 (22-29) mmol/L Anion Gap 12 (12-20) BUN 10 (9-16) mg/dL Creatinine 0.82 (0.5-1.4) mg/dL Estim Creat Clear Calc 89.8 Estimated GFR > 60 Random Glucose 60 (60-115) mg/dL Calcium 9.4 (8.4-10.2) mg/dL Magnesium 2.1 (1.6-2.6) mg/dL Total Bilirubin 1.2 H (0.0-1.0) mg/dL Direct Bilirubin 0.4 (0.0-0.5) mg/dL AST 17 (5-31) U/L ALT 13 (0-31) U/L Alkaline Phosphatase 82 (39-117) U/L Troponin I High Sens < 2.7 (<3.5-17.0) ng/L Total Protein 7.1 (6.5-8.0) g/dL Albumin 4.1 (3.5-5.0) g/dL Lipase 16 (8-78) U/L Beta HCG, Quant < 2 mIU/mL Urine Color Dark Yellow Urine Appearance Cloudy Urine pH 6.0 (5.0-9.0) Ur Specific [place] >= 1.030 H (1.005-1.025) Urine Protein 30 (1+) H (Neg-Trace) mg/dL Urine Glucose (UA) Negative (Negative) mg/dL Urine Ketones 15 (Negative) mg/dL Urine Blood Small (1+) H (Negative) Urine Nitrite Negative (Negative) Ur Leukocyte Esterase Trace H (Negative) Urine RBC 3-5 H (0-2) /HPF Urine WBC 0-5 (0-5) /HPF Ur Squamous Epith Cells 3-5 (0-2) /HPF Urine Bacteria Trace (None Seen) Hyaline Casts 0-2 (0-2) /LPF Urine Test NEGATIVE (NEGATIVE) Influenza Type A (PCR) NEGATIVE (Negative) Influenza Type B (PCR) NEGATIVE (Negative) RSV RNA Qual (PCR) NEGATIVE (Negative) SARS-CoV-2 RNA (RT-PCR) NEGATIVE (Negative) Independent Interpretation I performed an independent interpretation of an: EKG Interpretation: Rate: 52 Rhythm:? Sinus bradycardia [place]:? Normal Normal P waves.? Normal [place].?? Normal QRS complex.?? ST T wave :??No ST elevation, no ST depression qTC:401 The study has been interpreted contemporaneously by me. Independent Historian Clinical information obtained from an independent historian. History obtained from or confirmed by: Spouse and EMS Discharge Plan Discharge Clinical Impression: Nausea & vomiting, Near syncope Patient Disposition: Left Against Medical Advice Prescriptions: No Action cyclobenzaprine 10 mg tablet 10 mg PO TID PRN (Reason: muscle spasm) Qty: 20 0RF ibuprofen 600 mg tablet 600 mg PO Q6H PRN (Reason: pain) Qty: 30 0RF ondansetron 4 mg tablet,disintegrating 4 mg PO Q8H PRN (Reason: nausea and vomiting) Qty: 20 0RF nitrofurantoin macrocrystal 100 mg capsule 100 mg PO BID Qty: 14 0RF Rx Instructions: must administer with a meal/food Print Language: Slovenian
--- NOTE | 2024-06-03 13:50 | ECG_ITS ---
Test Reason : NEAR SYNCOPE Blood Pressure : / mmHG Vent. Rate : 052 BPM Atrial Rate : 052 BPM P-R Int : 156 ms QRS Dur : 080 ms QT Int : 432 ms P-R-T Axes : -01 061 055 degrees QTc Int : 401 ms Sinus bradycardia Otherwise normal ECG When compared with ECG of 11-FEB-2011 15:25, Sinus bradycardia present now Referred By: Kendal Maria Electronically Signed By:Torey Meadows
[2024-06-03 14:24] LABS: MANUAL DIFF FLAG NO
[2024-06-03 14:26] LABS: Basophils Percent Auto 0.4 % (0-2); Eosinophils Absolute Auto 0.1 X10*3/uL (0.0-0.4); Hematocrit 40.3 % (37.0-47.0); Hemoglobin 14.2 g/dl (12.0-16.0); Imm Gran Abs Auto 0.05 X10*3/uL (0.00-0.03); Imm Gran Pct Auto 0.5 % (0.0-0.4); Lymphocytes Absolute Auto 0.9 X10*3/uL (1.2-4.9); Lymphocytes Percent Auto 9.5 % (20-40); Mean Corpuscular HGB Conc 35.2 g/dl (31.0-35.0); Mean Corpuscular Volume 90.8 fL (80.0-98.0); Mean Platelet Volume 8.4 fL (9.4-12.3); Monocytes Absolute Auto 0.6 X10*3/uL (0.1-1.2); Monocytes Percent Auto 6.3 % (2-11); Neutrophils Percent Auto 82.3 % (45-73); Platelet Count 251 X10*3/uL (160-400); Red Blood Count 4.44 X10*6/uL (4.20-5.50); Red Cell Distribution Width 12.1 % (11.0-16.0); White Blood Count 9.7 X10*3/uL (4.8-10.8)
[2024-06-03 14:27] VITALS: BP 91/43; PULSE 57
[2024-06-03 14:27] LABS: Appearance Urine Cloudy; Color Urine Dark Yellow; Glucose Urine UA Negative (Negative); Leukocyte Esterase Urine Trace (Negative); Nitrite Urine Negative (Negative); Specific Gravity - Urine >= 1.030 (1.005-1.025); UMIC TRIGGER UACC YES; Urine Blood Small (1+) (Negative); Urine Ketones 15 mg/dL (Negative); Urine Protein 30 (1+) mg/dL (Neg-Trace)
[2024-06-03 14:28] VITALS: BP 80/48; BP 89/49; PULSE 56; PULSE 76
[2024-06-03 14:28] LABS: UPreg QC Valid YES
[2024-06-03 14:29] VITALS: BP 89/49; PULSE 57; RESP 14; O2SAT 99
[2024-06-03 14:29] LABS: Urine Pregnancy NEGATIVE (NEGATIVE)
[2024-06-03] MEDS: ondansetron HCL 4 MG/2 ML VIAL IVPUSH (14:29)
[2024-06-03] MEDS: 0.9 % Sodium Chloride 1,000 ML 999 ML IV (14:30)
[2024-06-03 14:39] LABS: Anion Gap 12 (12-20); Blood Urea Nitrogen 10 mg/dL (9-16); Calcium 9.4 mg/dL (8.4-10.2); Carbon Dioxide 24 mmol/L (22-29); Chloride 108 mmol/L (96-108); Creatinine Clr Calc Pharmacy 89.8; Estimated Glomerular Filt Rate > 60; Glucose Random 60 mg/dL (60-115); Potassium 3.8 mmol/L (3.3-5.1); Sodium 140 mmol/L (135-145)
[2024-06-03 14:41] LABS: Bacteria Urine Trace (None Seen); Hyaline Casts Urine 0-2 /LPF (0-2); WBC Urine 0-5 /HPF (0-5)
[2024-06-03 14:42] LABS: Alanine Aminotransferase 13 U/L (0-31); Albumin Level 4.1 g/dL (3.5-5.0); Alkaline Phosphatase 82 U/L (39-117); Aspartate Amino Transferase 17 U/L (5-31); Bilirubin Direct 0.4 mg/dL (0.0-0.5); Bilirubin Total 1.2 mg/dL (0.0-1.0); Lipase 16 U/L (8-78); Magnesium 2.1 mg/dL (1.6-2.6); Total Protein 7.1 g/dL (6.5-8.0)
[2024-06-03 14:59] LABS: HCG Quantitative < 2 mIU/mL; Troponin-I High Sensitivity < 2.7 ng/L (<3.5-17.0)
[2024-06-03 15:02] LABS: Influenza A PCR NEGATIVE (Negative); Influenza B PCR NEGATIVE (Negative); Resp Syncy Virus RNA Qual PCR NEGATIVE (Negative); SARS COV2 PCR INHOUSE NEGATIVE (Negative)
[2024-06-03 16:05] VITALS: BP 93/54; PULSE 59; RESP 16; TEMP 36.6; O2SAT 100
[2024-06-03 16:36] VITALS: BP 93/54; PULSE 59; RESP 16; TEMP 36.6; O2SAT 100
== END 2024-06-03 16:36 | disposition left against medical advice (07) ==
PROVIDERS: Nurse Practitioner Family; Emergency Provider Emergency Medicine
DX: R11.2 Nausea with vomiting, unspecified (principal); R55 Syncope and collapse; R10.2 Pelvic and perineal pain; R00.1 Bradycardia, unspecified; Z03.818 Encounter for observation for suspected exposure to other biological agents ruled out; Z79.899 Other long term (current) drug therapy
CPT/HCPCS: 0241U; 36415; 74176; 80048; 80076; 81001; 81025; 83690; 83735; 84484; 84702; 85025; 93005; 96360; 96374; 99284; J2405

== ENCOUNTER → 2024-06-03 13:50 | Outpatient (BNV) | payer OTHER, SELFPAY | PROVIDERS: Emergency Provider Emergency Medicine; Visit Provider Internal Medicine Cardiovascular Disease | DX: R55 Syncope and collapse (principal); R00.1 Bradycardia, unspecified | CPT/HCPCS: 93010 ==

== ENCOUNTER 2025-03-27 09:43 | Emergency (ER) | payer OTHER, SELFPAY ==
[2025-03-27 09:56] VITALS: BP 103/76; PULSE 81; RESP 16; TEMP 36.4; O2SAT 98; BMI 23.2
--- NOTE | 2025-03-27 10:37 | ED.GENADULT ---
HPI - General Adult General Chief complaint: Wound/Laceration Stated complaint: R Hand Injury- Cut With Glass Time Seen by Provider: 03/27/25 10:36 History of Present Illness HPI narrative: THIS IS A LWCT PATIENT I NEVER SAW OR EXAMINED THEM I AM UNCLEAR HOW THIS NOTE WAS STARTED OR ENDED UP IN MY QUEUE Related Data Previous Rx's ?Medication ?Instructions ?Recorded nitrofurantoin macrocrystal 100 mg 100 mg PO BID #14 caps 05/22/24 capsule cyclobenzaprine 10 mg tablet 10 mg PO TID PRN muscle spasm #20 05/26/24 tabs ibuprofen 600 mg tablet 600 mg PO Q6H PRN pain #30 tabs 05/26/24 ondansetron 4 mg disintegrating 4 mg PO Q8H PRN nausea and 05/26/24 tablet vomiting #20 tabs Allergies Allergy/AdvReac Type Severity Reaction Status Date / Time No Known Allergies Allergy Verified 03/27/25 15:13 [facility] Past Medical History Medical History Left nasal polyps Chronic GERD Migraine Ileitis Surgical History History of colonoscopy Social History Social History Housing: House Alcohol intake: never Patient Tobacco Use Status: Never used Tobacco e-Cigarette/Vaping Use: Never Used Second Hand Smoke Exposure: No Advance Directives: No Advance Directives Information Provided: Yes Do you have a plan to hurt others: No Plan service: No Current occupational status: employed Current occupation: [employer] Current occupational exposures/hazards: No Cognitive needs: No Hearing needs: No Vision needs: No Physical Exam ED Vital Signs: Vital Signs - 24 hr 03/27/25 09:56 Temperature 97.5 F Pulse Rate 81 Respiratory Rate 16 Blood Pressure 103/76 Pulse Oximetry 98 Oxygen Delivery Method Room Air BMI result Body Mass Index 23.2 Discharge Plan Discharge Clinical Impression: Laceration Patient Disposition: Left W/O Completing Treatment Prescriptions: No Action cyclobenzaprine 10 mg tablet 10 mg PO TID PRN (Reason: muscle spasm) Qty: 20 0RF ibuprofen 600 mg tablet 600 mg PO Q6H PRN (Reason: pain) Qty: 30 0RF ondansetron 4 mg tablet,disintegrating 4 mg PO Q8H PRN (Reason: nausea and vomiting) Qty: 20 0RF nitrofurantoin macrocrystal 100 mg capsule 100 mg PO BID Qty: 14 0RF Rx Instructions: must administer with a meal/food Discharge Date/Time: 03/27/25 11:00
--- NOTE | 2025-03-27 12:32 | PC.NURSE ---
Late chart entry: pt seen in triage and brought back to bed for continuation of treatment; pt had a bandage to affected hand and asked to not have it unwrapped until she was going to have tx by provider because she can't do blood ; pt stated early on in her ER stay that she needed to go to [facility] and pt left the dept and didn't return; tank charger and provider notified
== END 2025-03-27 11:00 | disposition left against medical advice (07) ==
PROVIDERS: Emergency Provider Emergency Medicine; PCP Nurse Practitioner Family
DX: S61.411A Laceration without foreign body of right hand, initial encounter (principal); X58.XXXA Exposure to other specified factors, initial encounter; Y93.9 Activity, unspecified; Y92.9 Unspecified place or not applicable; Y99.8 Other external cause status
CPT/HCPCS: 99281; 99282

== ENCOUNTER 2025-03-27 14:58 | Emergency (ER) | payer OTHER, SELFPAY ==
[2025-03-27 15:12] VITALS: BP 103/65; PULSE 67; RESP 16; TEMP 36.6; O2SAT 100; BMI 23.2
--- NOTE | 2025-03-27 15:21 | ED.WOUNDLAC ---
HPI - Wound/Laceration General Chief Complaint: Wound/Laceration Stated Complaint: Right Hand Injury- Cut By Glass Time Seen by Provider: 03/27/25 15:21 Source: patient, RN notes reviewed and old records reviewed Mode of arrival: ambulatory History of Present Illness ED Provider: Isabella Graves PA-C HPI narrative: 19-year-old female no significant past medical history presenting to the ED complaining of laceration to right hand s/p cleaning glass cup earlier today. States glass broke and cut her. Tetanus up-to-date. Denies injury to other area or suspected/retained foreign body. Denies numbness, tingling, weakness. Related Data Previous Rx's ?Medication ?Instructions ?Recorded nitrofurantoin macrocrystal 100 mg 100 mg PO BID #14 caps 05/22/24 capsule cyclobenzaprine 10 mg tablet 10 mg PO TID PRN muscle spasm #20 05/26/24 tabs ibuprofen 600 mg tablet 600 mg PO Q6H PRN pain #30 tabs 05/26/24 ondansetron 4 mg disintegrating 4 mg PO Q8H PRN nausea and 05/26/24 tablet vomiting #20 tabs Allergies Allergy/AdvReac Type Severity Reaction Status Date / Time No Known Allergies Allergy Verified 03/27/25 15:13 Review of Systems Review of Systems: Yes all other systems are reviewed and are negative Constitutional: Constitutional: Reports as per [facility] Past Medical History Attestation statement: The following information was validated with the patient. Source: old records reviewed Medical History Left nasal polyps Chronic GERD Migraine Ileitis Surgical History History of colonoscopy Social History Social History Housing: House Alcohol intake: never Patient Tobacco Use Status: Never used Tobacco e-Cigarette/Vaping Use: Never Used Second Hand Smoke Exposure: No Advance Directives: No Advance Directives Information Provided: Yes Do you have a plan to hurt others: No Plan service: No Current occupational status: employed Current occupation: [employer] Current occupational exposures/hazards: No Cognitive needs: No Hearing needs: No Vision needs: No Physical Exam Vital Signs: Vital Signs: Last Vital Signs Temp 97.9 F 03/27/25 15:24 Pulse 67 03/27/25 15:24 Resp 16 03/27/25 15:24 BP 103/65 03/27/25 15:24 Pulse Ox 100 03/27/25 15:24 O2 Del Method Room Air 03/27/25 15:24 BMI result Body Mass Index 23.2 Const: General: cooperative, healthy appearing and no acute distress Orientation/consciousness: patient oriented x3 Limitations: no limitations HEENT: Head: Yes normal to inspection and Yes atraumatic Ears: hearing grossly normal bilaterally General nose exam: Normal external nose present Face and sinus: Yes normal facial exam Eyes: General: appearance normal, both eyes and all related structures EOM: EOMs intact bilaterally Neck: Neck: Yes normal visual inspection and Yes no meningeal signs Resp: Effort & Inspection: normal respiratory effort and no respiratory distress Cardio: Rate: regular rate Skin: Other: Superficial 1 cm flap laceration noted to right 5th digit MCP. Bleeding controlled. Underlying structures appear intact. Allwrf-sp-[id number] opposition intact. Neurovascularly intact. Rashes: no rashes Neuro: General: patient oriented x3, tone normal and no meningeal signs Cranial nerves: Yes CN's II-XII intact bilaterally Gait exam (Neuro): Normal gait present Extrem: General: Yes normal to inspection Medical Decision Making Medical Decision Making MDM Narrative: 19-year-old female no significant past medical history presenting to the ED complaining of laceration to right hand s/p cleaning glass cup earlier today. On exam vital signs stable, NAD, nontoxic appearing, physical exam as noted above. Wound repaired with Dermabond/skin glue. Low suspicion for fracture or deeper injury including tendon/ligamental rupture. No appreciable retained foreign body Wound repair Please refer to course for remaining clinical decision making, interpretation of labs/imaging results, and discussions with consultants and/or family members. Differential Diagnosis Differential Diagnoses: The differential diagnosis associated with the presentation includes As above External Record Review External record reviewed: Inpatient record, Office record, Outpatient record, Prior outpatient labs, Prior outpatient radiology, Primary care record and Outside ED record Tests considered The following testing was considered but not selected: As above Prescription Management I considered prescription management with: Other Chronic Conditions Patient?s care impacted by: Other Social Determinants Patient?s care significantly limited by Social Determinants of Health including: Other Social Determinant of Health Procedures Laceration Laceration 1: Site: hand Side (If applicable): right Size (cm): 1 Description: flap Depth: simple, single layer Pre-repair: wound explored, irrigated extensively and deep structures intact Skin layer closed with: other (Dermabond) Discharge Plan Discharge Clinical Impression: Laceration Patient Disposition: Home, Self-Care Instructions: Laceration (DC) Additional Instructions: Your wounds were repaired today in the emergency department. Keep dry and clean. Your wound was repaired with skin glue Keep on as long as possible, avoid getting wet Once sutures are removed apply anti scar cream like Mederma If area begins look infected, is red, there is drainage, streaking, or you have fever please return to the emergency department Prescriptions: No Action cyclobenzaprine 10 mg tablet 10 mg PO TID PRN (Reason: muscle spasm) Qty: 20 0RF ibuprofen 600 mg tablet 600 mg PO Q6H PRN (Reason: pain) Qty: 30 0RF ondansetron 4 mg tablet,disintegrating 4 mg PO Q8H PRN (Reason: nausea and vomiting) Qty: 20 0RF nitrofurantoin macrocrystal 100 mg capsule 100 mg PO BID Qty: 14 0RF Rx Instructions: must administer with a meal/food Referrals: Tisha Ellis, [facility] [Primary Care Provider] - 1 week Interventions: ED Discharge Assessment Last Done: 03/27/25 15:24 Discharge Date/Time: 03/27/25 15:26 Print Language: Luxembourgish
--- NOTE | 2025-03-27 15:23 | PC.NURSE ---
wound cleaned and dermabond applied by pit provider.
[2025-03-27 15:24] VITALS: BP 103/65; PULSE 67; RESP 16; TEMP 36.6; O2SAT 100
== END 2025-03-27 15:26 | disposition home or self-care (01) ==
PROVIDERS: Emergency Provider Emergency Medicine; PCP Nurse Practitioner Family
DX: S61.411A Laceration without foreign body of right hand, initial encounter (principal); M79.641 Pain in right hand; W25.XXXA Contact with sharp glass, initial encounter; Y93.9 Activity, unspecified; Y92.9 Unspecified place or not applicable; Y99.8 Other external cause status
CPT/HCPCS: 12041; 99282; 99284

== ENCOUNTER 2025-03-28 16:44 | Emergency (ER) | payer OTHER, SELFPAY ==
[2025-03-28 16:47] VITALS: BP 120/66; PULSE 96; RESP 16; TEMP 36.8; O2SAT 100; BMI 22.6
--- NOTE | 2025-03-28 16:47 | ED_ITS ---
HPI - General Adult General Chief complaint: Wound/Laceration Stated complaint: re-opened wound on right hand seen yesterday [facility] Time Seen by Provider: 03/28/25 16:51 Source: patient Mode of arrival: ambulatory Limitations: no limitations History of Present Illness ED Provider: Jasmin Freeman PA-C HPI narrative: Patient is a 19 year old assigned female at with a history of irregular periods and recent right 1st knuckle laceration presenting to the emergency department today with concerns of bleeding around her laceration site. Patient states that today while at work she noticed some oozing of blood from around the glue that was on her right 1st knuckle. Patient denies any dizziness, lightheadedness, abdominal pain, nausea, vomiting, fever, chills, blurry vision, double vision, loss of vision, chest pain, difficulty breathing, shortness of breath, back pain, night sweats, pain with urination, increased urinary frequency, increased urinary urgency, blood in her urine or stool, syncope or a near syncopal episode, bowel incontinence, bladder incontinence, or any other complaints at this time. Related Data Previous Rx's ?Medication ?Instructions ?Recorded nitrofurantoin macrocrystal 100 mg 100 mg PO BID #14 caps 05/22/24 capsule cyclobenzaprine 10 mg tablet 10 mg PO TID PRN muscle spasm #20 05/26/24 tabs ibuprofen 600 mg tablet 600 mg PO Q6H PRN pain #30 tabs 05/26/24 ondansetron 4 mg disintegrating 4 mg PO Q8H PRN nausea and 05/26/24 tablet vomiting #20 tabs Allergies Allergy/AdvReac Type Severity Reaction Status Date / Time No Known Allergies Allergy Verified 03/28/25 16:48 Review of Systems Constitutional: Constitutional: Reports no additional constitutional complaints, Denies chills, Denies fever(s) and Denies night sweats Eyes: Eyes: Reports no additional eye complaints, Denies blurry vision, Denies change in vision, Denies diplopia, Denies eye discharge, Denies loss of vision and Denies eye pain ENT: Denies dizziness Cardiovascular: Cardiovascular: Reports no additional cardiovascular complaints, Denies chest pain, Denies lightheadedness, Denies Loss of Consciousness and Denies dyspnea Respiratory: Respiratory: Reports no additional respiratory complaints and Denies dyspnea Gastrointestinal: Gastrointestinal: Reports no additional gastrointestinal complaints, Denies abdominal pain, Denies melena, Denies hematochezia, Denies change in bowel habits and Denies change in stool character Genitourinary: Genitourinary: Denies hematuria, Denies urinary frequency, Denies dysuria, Denies urinary incontinence, Denies urinary hesitancy and Denies urinary urgency Musculoskeletal: Musculoskeletal: Reports no additional musculoskeletal complaints, Denies numbness and Denies tingling Comments: right 1st knuckle dermabond on laceration Neurologic: Denies dizziness, Denies loss of vision, Denies numbness and Denies tingling Psychiatric: Psychiatric: Reports no additional psychiatric complaints Endocrine: Endocrine: Reports no additional endocrine complaints Hematologic/Lymphatic: Hematologic/Lymphatic: Reports no additional hematologic/lymphatic complaints Allergic/Immunologic: Allergic/Immunologic: Reports no additional allergic/immunologic complaints PMFSH Past Medical History Attestation statement: The following information was validated with the patient. Source: old records reviewed and nursing notes reviewed Medical History Left nasal polyps Chronic GERD Migraine Ileitis Surgical History History of colonoscopy Social History Social History Housing: House Alcohol intake: never Patient Tobacco Use Status: Never used Tobacco e-Cigarette/Vaping Use: Never Used Second Hand Smoke Exposure: No Advance Directives: No Advance Directives Information Provided: Yes service: No Current occupational status: employed Current occupation: [employer] Current occupational exposures/hazards: No Cognitive needs: No Hearing needs: No Vision needs: No Physical Exam ED Vital Signs: Vital Signs - 24 hr 03/28/25 16:47 03/28/25 17:10 Temperature 98.2 F 98.2 F Pulse Rate 96 96 Respiratory Rate 16 16 Blood Pressure 120/66 120/66 Pulse Oximetry 100 100 Oxygen Delivery Method Room Air Room Air BMI result Body Mass Index 22.6 Const General: cooperative, no acute distress, alert and awake Nutritional Appearance: well nourished Orientation/consciousness: patient oriented x3 HENMT Head: Yes normal to inspection and Yes atraumatic Ears: hearing grossly normal bilaterally and external ears normal General nose exam: Normal external nose present, no nasal discharge noted and no epistaxis Face and sinus: Yes normal facial exam, No abrasion and No laceration Mouth: Normal oral and palatal mucosa present, no drooling and no muffled voice Eyes General: appearance normal, both eyes and all related structures Periorbital: periorbital findings normal Eyelids: Yes eyelids normal Conjunctivae: conjunctivae normal Pupils: Equal, round and reactive pupils present EOM: EOMs intact bilaterally Neck Neck: Yes normal visual inspection, Yes full ROM and Yes no lymphadenopathy Resp Effort & Inspection: normal respiratory effort and able to speak in complete sentences Neuro General: patient oriented x3, moves all extremities and CN's II-XI intact bilaterally Cranial nerves: Yes Equal, round and reactive pupils present Cognition (Neuro): normal cognition Extrem Other: small area of dermabond present to the right dorsal 1st knuckle with no noted oozing General: Yes full ROM and Yes capillary refill normal Psych Appearance: grossly normal Mental Status: mental status grossly normal Affect: normal affect Attitude: cooperative Thought process: Normal thought process present Thought content: Normal thought content present Insight: Good insight present (Psych) Course Course Course Narrative: This is a rapid medical exam performed by Andrew Matos NP: Additional HPI, ROS, PE not included below will be deferred to primary provider. Patient is a 19-year-old female presenting with ongoing bleeding around glue used for laceration repair here yesterday. Procedures Procedure Narrative Procedure Narrative: Applied dermabond to the right 1st knuckle previously dermabond area to ensure no recurrence of oozing Medical Decision Making Medical Decision Making MDM Narrative: Patient is a 19 year old assigned female at with a history of irregular periods and recent right 1st knuckle laceration presenting to the emergency department today with concerns of bleeding around her laceration site. Patient's physical exam was as noted in the physical exam portion of this note. I explained my physical exam findings to the patient. I answered all questions asked by the patient. I applied more dermabond to the area / widened the area covered to ensure no more oozing of blood. I stressed the importance of the patient taking her medication as directed (either prescribed or as the over the counter packaging recommends). I stressed the importance of the patient following up with her primary care provider. I stressed the importance of the patient returning to the emergency department immediately if her symptoms were to worsen or if she were to develop any dizziness, shortness of breath, difficulty breathing, chest pain, blurry vision, loss of vision, nausea, vomiting, abdominal pain, fever, chills, back pain, or any other complaints. Patient verbalized agreement and understanding with this treatment plan and discharge. Differential Diagnosis Differential Diagnoses: The differential diagnosis associated with the presentation includes Right 1st knuckle laceration Admission/Observation Consideration of admission/observation: Escalation of care including admission /observation considered Patient would have been admitted to the hospital had her clinical presentation warranted hospital admission. Discharge Plan Discharge Clinical Impression: Avulsion of skin Patient Disposition: Home, Self-Care Instructions: Skin Adhesive Care (ED) Additional Instructions: Do NOT get the area wet for at least 7 days. Follow up with your primary care provider. Return to the emergency department immediately if your symptoms worsen or if you develop any numbness, tingling, dizziness, shortness of breath, difficulty breathing, chest pain, blurry vision, loss of vision, nausea, vomiting, abdominal pain, fever, chills, back pain, or any other complaints. Please see the information below about our Patient Portal. If you are not yet enrolled in the [facility] Patient Portal, you will receive an enrollment email invitation following your visit to any [facility] setting. You may also self-enroll in the Patient Portal by visiting our website: [email or web address] The following information is required to access the Patient Portal: - Your [facility] Medical Record Number - Your personal home email address (must match what is in your electronic medical record, Registration staff can assist with this) - Name - Date of Capabilities of the Patient Portal: - Message some providers - View upcoming appointments - Access your health summary, medical history, and visit history - View current conditions and allergies - View procedure and lab results - View your medications, including guidelines, side effects, and precautions - Complete pre-appointment questionnaires requested by your provider - Ready summary reports of your office visits and procedures To access the Patient Portal Mobile Daniel, follow these directions: - Search [employer] in the Daniel Store or Google Play Store - Download the Daniel - Search for [facility] - Enter your login/password Prescriptions: No Action cyclobenzaprine 10 mg tablet 10 mg PO TID PRN (Reason: muscle spasm) Qty: 20 0RF ibuprofen 600 mg tablet 600 mg PO Q6H PRN (Reason: pain) Qty: 30 0RF ondansetron 4 mg tablet,disintegrating 4 mg PO Q8H PRN (Reason: nausea and vomiting) Qty: 20 0RF nitrofurantoin macrocrystal 100 mg capsule 100 mg PO BID Qty: 14 0RF Rx Instructions: must administer with a meal/food Referrals: [facility] [Provider Group] (Call to establish and follow up with a primary care provider. If you already have a primary care provider, please follow up with them.) [facility], [place] [Provider Group] (Call to establish and follow up with a primary care provider. If you already have a primary care provider, please follow up with them.) [facility], [place] [Provider Group] (Call to establish and follow up with a primary care provider. If you already have a primary care provider, please follow up with them.) [facility], [facility] [Provider Group] (Call to establish and follow up with a primary care provider. If you already have a primary care provider, please follow up with them.) [facility] [Provider Group] (Call to establish and follow up with a primary care provider. If you already have a primary care provider, please follow up with them.) Interventions: ED Discharge Assessment Last Done: 03/28/25 17:10 Discharge Date/Time: 03/28/25 17:10 Print Language: Mongolian
[2025-03-28 17:10] VITALS: BP 120/66; PULSE 96; RESP 16; TEMP 36.8; O2SAT 100
== END 2025-03-28 17:10 | disposition home or self-care (01) ==
PROVIDERS: Emergency Provider Emergency Medicine
DX: S61.411A Laceration without foreign body of right hand, initial encounter (principal); W45.8XXA Other foreign body or object entering through skin, initial encounter; Y93.9 Activity, unspecified; Y92.9 Unspecified place or not applicable; Y99.9 Unspecified external cause status
CPT/HCPCS: 12002; 99282

== ENCOUNTER 2025-08-12 09:35 | Emergency (ER) | payer OTHER, SELFPAY ==
--- NOTE | 2025-08-12 | ECG_ITS ---
Test Reason : syncope Blood Pressure : */* mmHG Vent. Rate : 71 BPM Atrial Rate : 71 BPM P-R Int : 158 ms QRS Dur : 78 ms QT Int : 400 ms P-R-T Axes : 37 54 56 degrees QTcB Int : 434 ms Normal sinus rhythm Cannot rule out Anterior infarct , age undetermined Abnormal ECG When compared with ECG of 03-Jun-2024 13:57, No significant change was found Referred By: Generic ED Physician Electronically Signed By: MYLES NINA MD
--- NOTE | ~2025-08-12 | US_ITS ---
EXAMINATION: US OBSTETRICAL ULTRASOUND CLINICAL INFORMATION: syncope, newly COMPARISON: None available. LMP: 07/09/2025. Gestational age by maternal dates is 4 weeks 6 days. Estimated date of delivery by maternal dates is 04/15/2026. TECHNIQUE: Grayscale and color Doppler imaging was performed transabdominally and transvaginally FINDINGS: There is a single intrauterine gestational sac. There is no significant subchorionic hemorrhage or hematoma. HR: None demonstrated CRL (crown rump length): Not visualized Mean sac diameter: 3 mm Estimated gestational age by sac size: 4 weeks 5 days JOSE (estimated date of delivery): 04/16/2026 MATERNAL ADNEXA: The right maternal ovary measures 3.6 x 2.4 x 1.5 cm. The left maternal ovary measures 3.0 x 2.2 x 2.4 cm. There is an isohypoechoic area measuring 2.2 cm with peripheral blood flow likely representing complex hemorrhagic cyst. There is no significant maternal adnexal mass. No maternal pelvic ascites. US/US OB pelvic and transvaginal IMPRESSION: Single intrauterine gestational sac is visualized without parts which is not abnormal for a sac of this size. Size and dates are concordant. Estimated gestational age 4 weeks 6 days with estimated date of delivery 04/15/2026 Electronically signed by: Steve Oconnor MD 08/12/2025 01:03 PM EDT
--- NOTE | ~2025-08-12 | XR_ITS ---
EXAMINATION: XR NASAL BONES CLINICAL INFORMATION: fall COMPARISON: None available. TECHNIQUE: 3 views of the nasal bones were obtained. FINDINGS: Nasal bones appear intact. No definite fracture is evident. Nasal septum is grossly midline. The paranasal sinuses are grossly well pneumatized without air-fluid levels. No soft tissue abnormality. XR/XR nasal bones min 3V IMPRESSION: No definite acute fracture is identified. Electronically signed by: Santiago Sy MD 08/12/2025 12:03 PM EDT RP
[2025-08-12 09:53] VITALS: BP 103/65; PULSE 72; RESP 16; TEMP 36.9; O2SAT 98; BMI 25.6
[2025-08-12 10:37] VITALS: BP 110/48; PULSE 65; RESP 16; O2SAT 99
[2025-08-12 10:38] VITALS: BP 107/68; PULSE 64; RESP 16; O2SAT 99
[2025-08-12 10:40] VITALS: BP 115/68; PULSE 68; RESP 16; O2SAT 99
[2025-08-12 10:40] LABS: MANUAL DIFF FLAG NO
--- NOTE | 2025-08-12 10:43 | PC.NURSE ---
Pt roomed and placed on full monitor VSS SR no ectopy. Orthostatic VS done and negative. Pt reports pain back of head from fall when she had syncopal episode. NAD no other complaints. No abrasion, bruise or lac on head.
[2025-08-12 10:44] LABS: Hematocrit 39.4 % (37.0-47.0); Hemoglobin 14.0 g/dl (12.0-16.0); Imm Gran Abs Auto 0.06 X10*3/uL (0.00-0.03); Imm Gran Pct Auto 0.8 % (0.0-0.4); Lymphocytes Absolute Auto 1.0 X10*3/uL (1.2-4.9); Mean Corpuscular HGB Conc 35.5 g/dl (31.0-35.0); Mean Corpuscular Hemoglobin 32.3 pg (27.0-33.0); Mean Corpuscular Volume 90.8 fL (80.0-98.0); NRBC Abs Auto 0.000 X10*3/uL (0.0-0.012); NRBC Pct Auto 0.0 /100WBC (0.0-0.2); Platelet Count 264 X10*3/uL (160-400); Red Blood Count 4.34 X10*6/uL (4.20-5.50); White Blood Count 8.0 X10*3/uL (4.8-10.8)
[2025-08-12 10:48] LABS: UPreg QC Valid YES
[2025-08-12 10:56] LABS: Alanine Aminotransferase 15 U/L (0-31); Albumin Level 4.4 g/dL (3.5-5.0); Alkaline Phosphatase 76 U/L (39-117); Anion Gap 7 (12-20); Aspartate Amino Transferase 23 U/L (5-31); Blood Urea Nitrogen 9 mg/dL (9-16); Calcium 9.1 mg/dL (8.4-10.2); Carbon Dioxide 26 mmol/L (22-29); Chloride 107 mmol/L (96-108); Creatinine Clr Calc Pharmacy 121.7; Estimated Glomerular Filt Rate > 60; Potassium 3.9 mmol/L (3.3-5.1); Sodium 136 mmol/L (135-145); Total Protein 7.2 g/dL (6.5-8.0)
--- NOTE | 2025-08-12 11:05 | ED_ITS ---
HPI - Syncope General Chief Complaint: Syncope Stated Complaint: Nausea, faint. Hit head/ nose Time Seen by Provider: 08/12/25 10:40 Source: patient and old records reviewed Mode of arrival: ambulatory Limitations: no limitations History of Present Illness ED Provider: KRYSTEN RAMIREZ narrative: 20 yo female with PMH of irregular periods but not on OCPs here with c/o getting up around 4am and feeling sweaty, nauseated with black spots in vision feeling she is going to pass out. She has hx of this in the past where she gets weak and passes out this is normally around her menses. She has some mild nose pain but no epistaxis. She has no vomiting. Her LMP was 9 and it was regular in length. SHe has no abdominal pain. She denies any vaginal bleeding. She notes she should be getting her menses soon as she is due and her last was 07/09 MD complaint: loss of consciousness Onset (ago): hour(s) (4am today) Prodromal symptoms: vision changes, lightheaded and nausea/vomiting Witnessed: No Context: getting out of bed and standing up Injuries sustained associated with event: face Current symptoms: back to baseline History: previous syncopal episode Treatments prior to arrival: none Related Data Previous Rx's ?Medication ?Instructions ?Recorded nitrofurantoin macrocrystal 100 mg 100 mg PO BID #14 c aps 05/22/24 capsule cyclobenzaprine 10 mg tablet 10 mg PO TID PRN muscle s pasm #20 05/26/24 tabs ibuprofen 600 mg tablet 600 mg PO Q6H PRN pain #30 t abs 05/26/24 ondansetron 4 mg disintegrating 4 mg PO Q8H PRN nausea and 05/26/24 tablet vomiting #20 tabs doxylamine 10 mg-pyridoxine (vit 1 tab PO DAILY PRN na usea #90 tabs 08/12/25 B6) 10 mg tablet,delayed release vitamins with calcium 1 tab PO DAILY #90 tabs 08/12/25 no.72-iron 29 mg-folic acid 1 mg tablet ( Plus) Allergies Allergy/AdvReac Type Severity Reaction Status Date / Time No Known Allergies Allergy Verified 08/12/25 09:57 Review of Systems 2 Review of Systems: Constitutional : No Fever, No Chills, No Fatigue ENT/Mouth : No sore throat, No Rhinorrhea Eyes: No Eye Pain, No Swelling, No Redness Cardiovascular : No Chest Pain, No SOB, No Dyspnea on Exertion Respiratory : No Cough, No Sputum Gastrointestinal : No Nausea, No Vomiting, No Diarrhea, No abdominal Pain Genitourinary : No Dysuria, No Urinary Frequency, No Hematuria, Musculoskeletal : No joint pain, No Myalgias, No Joint Swelling Skin : No Skin Lesions, No rash Neuro : No Weakness, No Numbness, No Dizziness, positive facial pain All other systems reviewed and are negative [facility] Past Medical History Medical History Left nasal polyps Chronic GERD Migraine Ileitis Surgical History History of colonoscopy Social History Social History Housing: House Alcohol intake: never Patient Tobacco Use Status: Never used Tobacco Smoked in Last 30 Days: No e-Cigarette/Vaping Use: Never Used Second Hand Smoke Exposure: No Substance Use Type: Marijuana Substance Use Type Other:: 2-3 blunts a week Advance Directives: No Advance Directives Information Provided: Yes Patient : No service: No Current occupational status: employed Current occupation: [employer] Current occupational exposures/hazards: No Cognitive needs: No Hearing needs: No Vision needs: No Physical Exam 2 Vital Signs: Vital Signs: Last Vital Signs Temp 98.4 F 08/12/25 09:53 Pulse 68 08/12/25 10:40 Resp 14 08/12/25 12:15 BP 115/68 08/12/25 10:40 Pulse Ox 99 08/12/25 12:15 O2 Del Method Room Air 08/12/25 12:15 BMI result Body Mass Index 25.6 Appearance: Alert. Oriented X3. No acute distress. Eyes: Pupils equal, round and reactive to light. ENT: Pharynx normal. atraumatic other than contusion and swelling to nasal bridge but no nasal septal hematoma and no active bleeding Neck: Normal inspection. Neck supple. CVS: Normal heart rate and rhythm. Pulses normal. Respiratory: No respiratory distress. Breath sounds normal. Abdomen: Soft and nontender. Skin: Skin warm and dry. Normal skin color. Normal skin turgor. Extremities: No lower extremity edema. Neuro: Oriented X 3. No motor deficit. No sensory deficit. CN2-12 intact Medications Administered Discontinued Medications Generic Name Dose Route Start Last Admin Trade Name David PRN Reason Stop Dose Admin Lactated Ringer's 1,000 mls @ 999 mls/hr 08/12/25 11:01 08/12/25 13:11 Lr IV 08/12/25 12:01 Infused .Q1H1M ONE Infusion Medical Decision Making Medical Decision Making [facility] Narrative: 20 yo female with syncope today injuring nose no bleeding now - she denies abdominal pain, CP, PERC negative. Her abdominal exam is benign doubt ruptured ectopic though her test is positive today at this time discussed risks of nasal bone xray, basic labs, EKG, IVF and will obtain quant if > 1500 will obtain US. Otherwise she has no risk factors for ACS, VTE other than new , arrhythmia. Differential Diagnosis Differential Diagnoses: The differential diagnosis associated with the presentation includes anemia, dehydration, vasovagal, , ectopic Admission/Observation Consideration of admission/observation: Escalation of care including admission/observation considered feels better, confirmed IUP stable for DC wants to go home Lab Data [facility] Lab Attestation statement: I reviewed the patient's lab results. 08/12/25 10:26 08/12/25 10:26 Labs: Lab Results 08/12/25 Range/Units 10:26 WBC 8.0 (4.8-10.8) X10*3/uL RBC 4.34 (4.20-5.50) X10*6/uL Hgb 14.0 (12.0-16.0) g/dl Hct 39.4 (37.0-47.0) % MCV 90.8 (80.0-98.0) fL MCH 32.3 (27.0-33.0) pg MCHC 35.5 H (31.0-35.0) g/dl RDW 11.9 (11.0-16.0) % Plt Count 264 (160-400) X10*3/uL MPV 8.3 L (9.4-12.3) fL Immature Gran % (Auto) 0.8 H (0.0-0.4) % Neut % (Auto) 79.1 H (45-73) % Lymph % (Auto) 12.1 L (20-40) % Mcleod % (Auto) 6.8 (2-11) % Eos % (Auto) 0.8 (0-4) % Baso % (Auto) 0.4 (0-2) % Lymph # (Auto) 1.0 L (1.2-4.9) X10*3/uL Mcleod # (Auto) 0.5 (0.1-1.2) X10*3/uL Eos # (Auto) 0.1 (0.0-0.4) X10*3/uL Baso # (Auto) 0.0 (0.0-0.2) X10*3/uL Abs Immat Gran (auto) 0.06 H (0.00-0.03) X10*3/uL Absolute Neuts (auto) 6.3 (2.0-8.3) x10*3/uL Absolute Nucleated RBC 0.000 (0.0-0.012) X10*3/uL Nucleated RBC % (auto) 0.0 (0.0-0.2) /100WBC Sodium 136 (135-145) mmol/L Potassium 3.9 (3.3-5.1) mmol/L Chloride 107 (96-108) mmol/L Carbon Dioxide 26 (22-29) mmol/L Anion Gap 7 L (12-20) BUN 9 (9-16) mg/dL Creatinine 0.66 (0.5-1.4) mg/dL Estim Creat Clear Calc 121.7 Estimated GFR > 60 Random Glucose 79 (60-115) mg/dL Calcium 9.1 (8.4-10.2) mg/dL Total Bilirubin 2.0 H (0.0-1.0) mg/dL AST 23 (5-31) U/L ALT 15 (0-31) U/L Alkaline Phosphatase 76 (39-117) U/L Total Protein 7.2 (6.5-8.0) g/dL Albumin 4.4 (3.5-5.0) g/dL Beta HCG, Quant 1789 mIU/mL Urine Test POSITIVE H (NEGATIVE) Independent Interpretation I performed an independent interpretation of an: EKG, Plain X-Ray (no fx) and Ultrasound (+IUP) Interpretation: Rate: 71 Rhythm: NSR [place]: normal Normal P waves. Normal [place]. Normal QRS complex. ST T wave : no HORACIO, inverted t wave qTC: 434 prior studies: no acute ischemia The study has been interpreted contemporaneously by me. . Radiology Impression Discussion of test interpretation with radiology: I have reviewed the radiologist's reading. External Record Review External record reviewed: Outpatient record Discharge Plan Discharge Clinical Impression: Vasovagal syncope Qualifiers: Weeks of gestation: less than 8 weeks Qualified Code(s): Z3A.01 - Less than 8 weeks gestation of Contusion of nose Qualifiers: Encounter type: initial encounter Qualified Code(s): S00.33XA - Contusion of nose, initial encounter Patient Disposition: Home, Self-Care Instructions: (ED), Syncope (ED), Nasal Contusion (ED) Additional Instructions: labs reassuring your xray did not show a broken bone but sometimes we miss them can always follow up with ENT as outpatient if after swelling you note a deformity, do not blow nose for 5 days return for any worsening symptoms, bleeding, pain, confusion or any other concerns follow up with outpatient provider regarding US/US OB pelvic and transvaginal IMPRESSION: Single intrauterine gestational sac is visualized without parts which is not abnormal for a sac of this size. Size and dates are concordant. Estimated gestational age 4 weeks 6 days with estimated date of delivery 04/15/2026 Prescriptions: New Plus 29 mg iron- 1 mg tablet 1 tab PO DAILY Qty: 90 0RF doxylamine-pyridoxine (vit B6) 10-10 mg tablet,delayed release (DR/EC) 1 tab PO DAILY PRN (Reason: nausea) Qty: 90 0RF No Action cyclobenzaprine 10 mg tablet 10 mg PO TID PRN (Reason: muscle spasm) Qty: 20 0RF ibuprofen 600 mg tablet 600 mg PO Q6H PRN (Reason: pain) Qty: 30 0RF ondansetron 4 mg tablet,disintegrating 4 mg PO Q8H PRN (Reason: nausea and vomiting) Qty: 20 0RF nitrofurantoin macrocrystal 100 mg capsule 100 mg PO BID Qty: 14 0RF Rx Instructions: must administer with a meal/food Print Language: Telugu
[2025-08-12] MEDS: Lactated Ringers 1,000 ML 999 ML IV (11:07)
[2025-08-12 12:15] VITALS: RESP 14; O2SAT 99
[2025-08-12 13:17] VITALS: BP 122/76; PULSE 72; RESP 14; TEMP 36.6; O2SAT 99
== END 2025-08-12 13:25 | disposition home or self-care (01) ==
PROVIDERS: Emergency Provider Emergency Medicine; PCP Family Medicine
DX: O9A.211 Injury, poisoning and certain other consequences of external causes complicating pregnancy, first trimester (principal); Z3A.00 Weeks of gestation of pregnancy not specified; R55 Syncope and collapse; R11.0 Nausea; R51.9 Headache, unspecified
CPT/HCPCS: 36415; 70160; 76801; 76817; 80053; 81025; 84702; 85025; 93005; 96360; 96361; 99285; J7120

== ENCOUNTER → 2025-08-12 10:20 | Outpatient (BNV) | payer OTHER, SELFPAY | PROVIDERS: Emergency Provider Emergency Medicine; Visit Provider Internal Medicine Cardiovascular Disease | DX: R94.31 Abnormal electrocardiogram [ECG] [EKG] (principal); R55 Syncope and collapse | CPT/HCPCS: 93010 ==

== ENCOUNTER → 2025-08-12 11:02 | Outpatient (BNV) | payer OTHER, SELFPAY | PROVIDERS: Emergency Provider Emergency Medicine; Visit Provider Radiology Diagnostic Radiology | DX: O36.80X0 Pregnancy with inconclusive fetal viability, not applicable or unspecified (principal); Z3A.01 Less than 8 weeks gestation of pregnancy; S09.92XA Unspecified injury of nose, initial encounter | CPT/HCPCS: 70160; 76801; 76817 ==